=== PATIENT | male | born 1985 | race Caucasian/White ===

== ENCOUNTER 2017-01-17 19:13 | Emergency (ER) | payer SELFPAY ==
[~2017-01-17] VITALS: Ht 162.6 cm; Wt 101.6 kg
[2017-01-17 19:28] VITALS: BP 152/90
--- NOTE | 2017-01-17 19:34 | NUR ---
vision acuity left eye 20/13, rt eye 20/10 , both eyes 20/13
--- NOTE | 2017-01-17 20:15 | NUR ---
PT TAKEN TO BED 3
--- NOTE | 2017-01-17 20:20 | NUR ---
Dr. Cartwright evaluating patient at bedside.
[2017-01-17] MEDS ORDERED: diphenhydrAMINE 50 MG/ML VIAL IM ONE (20:30)
[2017-01-17] MEDS ORDERED: PROCHLORPERAZINE 10 MG/2 ML VIAL IM ONE (20:30)
--- NOTE | 2017-01-17 20:32 | NUR ---
BENADRYL 50 MG IM AND COMPAZINE 10 MG IM GIVEN ORDERED.
--- NOTE | 2017-01-17 21:30 | NUR ---
VERBALIZED RELIF OF HEADACHE. VS REMAIN STABLE. AWAITING [place] [facility].
--- NOTE | 2017-01-17 22:37 | NUR ---
DELICIA DELGADO AT BEDSIDE TALKING TO PATIENT.
[2017-01-17 23:48] VITALS: BP 133/94
== END 2017-01-17 23:03 | disposition home or self-care (01) ==
LOC: MED 19:13
DX: S02.32XA Fracture of orbital floor, left side, initial encounter for closed fracture (principal); R51 Headache; R03.0 Elevated blood-pressure reading, without diagnosis of hypertension; X58.XXXA Exposure to other specified factors, initial encounter; Y93.89 Activity, other specified; Y92.89 Other specified places as the place of occurrence of the external cause; Y99.8 Other external cause status
CPT/HCPCS: 70450; 96372; 99284; J0780; J1200